=== PATIENT | female | born 1950 | race Caucasian/White ===

== ENCOUNTER 2021-01-09 04:49 | Emergency (ER) | payer MEDICARE ==
[~2021-01-09] VITALS: Ht 160 cm; Wt 181.0 kg
[~2021-01-09 04:49] MED LIST: ALBU18HF2 INH; ALD50T PO; ASPI-130 PO; CETI10TA15 PO; CLON-529 PO; DOCU-148 PO; ESOM40CA PO; FERR325T28 PO; FLUT16SP20 BOTHNARES; IBUP-1985 PO; LISI10TA27 PO; LORA1TAB PO; LOVA40TA76 PO; METF-436 PO; MYC15CR TOP; NEOM28.44 TP; NOR5T PO; ONDA4TAB12 PO; ROPI2TAB4 PO; SUCR1TAB34 PO; TRIA15CR61 TP
[2021-01-09 05:13] VITALS: BP 136/87
[2021-01-09] MEDS ORDERED: fluconazole 150mg tablet PO ONE (07:15)
[2021-01-09] MEDS ORDERED: sulfamethoxazole/trimethoprim DS (800/160mg) tablet PO ONE (07:20)
[2021-01-09] MEDS ORDERED: SULF1TAB49 PO (07:24)
[2021-01-09] MEDS ORDERED: FLUO15OI2 TP (07:24)
== END 2021-01-09 07:47 | disposition home or self-care (01) ==
LOC: ER 04:50
DX: L03.311 Cellulitis of abdominal wall (principal); E66.01 Morbid (severe) obesity due to excess calories; E78.00 Pure hypercholesterolemia, unspecified; I10 Essential (primary) hypertension; M79.7 Fibromyalgia; G47.39 Other sleep apnea; Z86.19 Personal history of other infectious and parasitic diseases; Z88.0 Allergy status to penicillin; Z88.1 Allergy status to other antibiotic agents; Z88.8 Allergy status to other drugs, medicaments and biological substances; Z79.899 Other long term (current) drug therapy; Z68.45 Body mass index [BMI] 70 or greater, adult
CPT/HCPCS: 99284

== ENCOUNTER 2023-02-16 09:56 | Emergency (ER) | payer MEDICARE ==
[~2023-02-16] VITALS: Ht 157.5 cm; Wt 175.4 kg
[~2023-02-16 09:56] MED LIST changes: -MYC15CR TOP; +NYST15CR36 TOP
[2023-02-16 10:09] VITALS: BP 104/77
[2023-02-16] MEDS ORDERED: normal saline 1000ML IV soln IVB ONE (10:55)
[2023-02-16 11:21] LABS: BASOPHILS % (AUTO) 0.3 % (0-1); EOSINOPHILS # (AUTO) 0.1 X10'3 (0-0.9); EOSINOPHILS % (AUTO) 1.1 % (0-6); HEMATOCRIT 41.4 % (35.0-45.0); HEMOGLOBIN 13.9 g/dl (12.0-16.0); LYMPHOCYTES # (AUTO) 0.5 X10'3 (1.1-4.8); LYMPHOCYTES % (AUTO) 5.8 % (21-51); MEAN CORPUSCULAR HEMOGLOBIN 29.3 PG (27.0-31.0); MEAN CORPUSCULAR HGB CONC 33.6 g/dL (33.0-36.5); MEAN CORPUSCULAR VOLUME 87.2 FL (78-98); MEAN PLATELET VOLUME 6.6 FL (7.4-10.4); MONOCYTES # (AUTO) 0.8 X10'3 (0-0.9); MONOCYTES % (AUTO) 9.3 % (2-12); NEUTROPHILS # (AUTO) 6.8 X10'3 (1.8-7.7); NEUTROPHILS % (AUTO) 83.5 % (42-75); PLATELET COUNT 306 X10'3 (140-440); RED BLOOD COUNT 4.75 X10'6 (4.20-5.60); RED CELL DISTRIBUTION WIDTH 15.1 % (11.5-14.5); WHITE BLOOD COUNT 8.1 X10'3 (4.5-11.0)
[2023-02-16 11:34] LABS: ALANINE AMINOTRANSFERASE 27 U/L (12-78); ALBUMIN 3.6 G/DL (3.4-5.0); ALBUMIN/GLOBULIN RATIO 0.9 (1.1-1.5); ALKALINE PHOSPHATASE 71 IU/L (46-116); ANION GAP 9 (8-16); ASPARTATE AMINO TRANSFERASE 19 U/L (10-37); BILIRUBIN,TOTAL 0.4 MG/DL (0.1-1.0); BLOOD UREA NITROGEN 15 MG/DL (7-18); BUN/CREATININE RATIO 12.8 (10.0-20.0); CALCIUM 9.3 MG/DL (8.5-10.1); CHLORIDE 91 MMOL/L (99-107); CREATININE 1.17 MG/DL (0.40-0.90); GLUCOSE 113 MG/DL (70-104); POTASSIUM 4.9 MMOL/L (3.5-5.1); SODIUM 126 MMOL/L (135-145); TOTAL CARBON DIOXIDE 25.8 MMOL/L (24-32); TOTAL PROTEIN 7.7 G/DL (6.4-8.2); eGFR 46 ML/MIN
[2023-02-16] MEDS ORDERED: NYST1000 PO (12:46)
== END 2023-02-16 12:57 | disposition home or self-care (01) ==
LOC: ER 09:56
DX: E87.1 Hypo-osmolality and hyponatremia (principal); B37.9 Candidiasis, unspecified; K04.7 Periapical abscess without sinus
CPT/HCPCS: 36415; 80053; 85025; 99283; J7030

== ENCOUNTER 2025-07-26 15:31 | Emergency (ER) | payer OTHER, MEDICARE ==
[~2025-07-26] VITALS: Ht 157.5 cm; Wt 194.0 kg
[~2025-07-26 15:31] MED LIST changes: -FLUT16SP20 BOTHNARES; +FLUT16SP35 BOTHNARES; -IBUP-1985 PO; +METO25TA6 PO; -NEOM28.44 TP; -NYST15CR36 TOP; +ONDA-243 PO; -ONDA4TAB12 PO; -SUCR1TAB34 PO
--- NOTE | 2025-07-26 15:57 | ELECTROCARDIOGRAPH REPORT ---
[facility] Test Date: 2025-07-26 Test Time: 15:56:10 Pat Name: DA ARIAS Department: [facility]-ER Patient ID: [facility]-[id number] Room: Gender: F Electronic Design Engineer: : 1950 Requested By: SAAD MARCIAL Order Number: [id number] Reading MD: Dr. HALLEY Pinedo Measurements Intervals [place] Rate: 74 P: 52 AR: 201 QRS: 41 QRSD: 87 T: 71 QT: 397 QTc: 441 Interpretive Statements Sinus rhythm Electronically Signed On 07-27-2025 13:53:[address] HALLEY Pinedo Please click the below link to view image of tracing.
[2025-07-26 16:10] LABS: MEAN PLATELET VOLUME 6.7 FL (7.4-10.4); RED CELL DISTRIBUTION WIDTH 15.9 % (11.5-14.5)
[2025-07-26 16:31] LABS: CREATININE 0.98 MG/DL (0.40-0.90); PRO BRAIN NATRIURETIC PEPTIDE 387 PG/ML (0-125); TOTAL CARBON DIOXIDE 30.2 MMOL/L (24-32); eCRCL 40 ML/MIN; eGFR 56 ML/MIN
--- NOTE | 2025-07-26 17:10 | RADIOLOGY REPORT ---
CHEST RADIOGRAPH REASON FOR EXAM: Chest pain COMPARISON: CT CTA CHEST PE on DOS: 07/07/24, CT CT CHEST on DOS: 07/06/24, DI CHEST,SINGLE VIEW on DOS: 07/06/24 TECHNIQUE: One view of the chest is provided FINDINGS: The cardiomediastinal silhouette is enlarged. Evaluation is degraded by body habitus. There is bibasilar airspace disease. There is no large pleural effusion. There is no pneumothorax. IMPRESSION: Evaluation degraded by body habitus. Bibasilar airspace disease may represent atelectasis although pneumonia is not ruled out.
[2025-07-26 20:35] VITALS: BP 135/76; PULSE 83; RESP 16; TEMP 98.6; O2SAT 90
== END 2025-07-26 21:29 | disposition left against medical advice (07) ==
LOC: ER 15:32
DX: R06.02 Shortness of breath (principal); R05.9 Cough, unspecified; R09.3 Abnormal sputum; Z53.21 Procedure and treatment not carried out due to patient leaving prior to being seen by health care provider; Z88.1 Allergy status to other antibiotic agents; Z88.5 Allergy status to narcotic agent; Z88.0 Allergy status to penicillin
CPT/HCPCS: 36415; 71045; 80048; 83880; 84484; 85025; 93005; 99281

== ENCOUNTER 2025-07-28 19:34 | Emergency (ER) | payer MEDICARE, OTHER ==
[2025-07-28 20:15] LABS: MEAN PLATELET VOLUME 6.6 FL (7.4-10.4); RED CELL DISTRIBUTION WIDTH 15.8 % (11.5-14.5)
[2025-07-28 20:29] LABS: CREATININE 0.90 MG/DL (0.40-0.90); PRO BRAIN NATRIURETIC PEPTIDE 301 PG/ML (0-125); TOTAL CARBON DIOXIDE 30.0 MMOL/L (24-32); eGFR 61 ML/MIN
--- NOTE | 2025-07-28 22:06 | Physician Documentation ---
History of Present Illness ~ Chief Complaint: Shortness of Breath Stated Complaint: LOW O2 Time Seen by MD: 22:05 Primary Medical Doctor: RADHA HPI Patient presents to the emergency room that has chief complaint of hypoxia when falling asleep. She reports a history of positive sleep study 10 years ago but never followed up. She generally feels ill reports morning headaches and that has not felt well for the past 1-2 months. She has follow up tomorrow morning with her primary care provider. Son that has concern because pulse ox dropped to 58% on room air when she was sleeping. Medication Reconciliation Allergies: Coded Allergies: Penicillins (Verified Allergy, Severe, HAS TROUBLE BREATHING, 07/26/25) cephalexin (Verified Allergy, Severe, 07/26/25) cefazolin sodium (Verified Allergy, Intermediate, 07/26/25) sob codeine (Verified Allergy, Intermediate, VISUAL DISTURBANCE, 07/26/25) doxycycline (Verified Allergy, Unknown, 07/26/25) hydromorphone (Verified Allergy, Unknown, REDUCES OXYGEN LEVELS, 07/26/25) Scheduled Amlodipine* (Norvasc*), 10 MG PO DAILY, (Reported) Cetirizine HCl (Cetirizine HCl), 1 TAB PO DAILY, (Reported) Clonidine Hcl* (Catapres*), 0.2 MG PO BID, (Reported) Esomeprazole Mag Trihydrate* (Nexium*), 40 MG PO DAILY, (Reported) Ferrous Sulfate* (Ferrous Sulfate*), 1 TAB PO BID, (Reported) Fluticasone Propionate (Fluticasone Propionate), 1 SPRAY BOTHNARES DAILY, (Reported) Lisinopril (Lisinopril), 10 MG PO DAILY, (Reported) Lovastatin* (Mevacor*), 40 MG PO DAILY, (Reported) Metformin Hcl (Metformin Hcl), 1 TAB PO BIDWM, (Reported) Metoprolol Tartrate (Metoprolol Tartrate), 0.5 TAB PO BID, (Reported) Ropinirole Hcl (Requip), 2 MG PO BID, (Reported) Spironolactone* (Aldactone*), 50 MG PO DAILY, (Reported) Triamcinolone Acetonide 0.5% Crm* (Kenalog 0.5% Crm*), 1 APPLIC TP DAILY, (Reported) Scheduled PRN Albuterol Sulfate (Ventolin Hfa), 2 PUFFS INH Q4HPRN PRN for SOB or wheezing, (Reported) Aspirin/Acetaminophen/Caffeine (Excedrin Tablet), 2 TAB PO Q4H PRN for migraine headaches, (Reported) Docusate Sodium (Colace), 1 CAP PO HS PRN for constipation, (Reported) Lorazepam* (Ativan*), 1 MG PO QID PRN for anxiety, (Reported) ONDANSETRON ODT 4mg tablet (Ondansetron Odt), 1 TABLET PO Q8H PRN for nausea/vomiting, (Reported) Past Medical History Past Medical History: Headache, Allergic Rhinitis, High Cholesterol, Hypertension, Asthma, Sleep Apnea, Diverticulosis, Fibromyalgia, Osteopenia, Cellulitis, Psoriasis, Anxiety, Depression Past Surgical History: noncontributory Alcohol Use: None Drug Use: none Lives with: Spouse Lives In: Home Review of Systems ROS All review of systems negative except as per HPI Physical Exam Vital Signs: Temperature: 98.0, Heart Rate: 90, Respiratory Rate: 18, BP: 146/86, Pulse Oximetry: 96 Oxygen Flow Rate: 2.0 Physical Exam General: Patient is awake, alert, oriented x4 in no acute distress. Morbidly obese Head: Normocephalic and atraumatic. Eyes: Conjunctival normal. EOMI. PERRL. ENT: Mucous membranes moist. Neck: Supple, trachea is midline. Chest: Clear to auscultation bilaterally without rales, rhonchi, or wheezes. There is no accessory muscle use or retractions. Cardiac: RRR without murmurs, gallops, or rubs. Abd: Soft, nontender. Large pannus Extremities: Normal strength. Normal range of motion. No deformities or edema. No calf tenderness to palpation Progress Results/Orders Results/Orders Orders - BETO FLORES MD Chest,Single View (07/28/25 20:18) Monitor (07/28/25 19:42) Saline Lock (07/28/25 19:42) Oxygen (07/28/25 19:42) Electrocardiogram (07/28/25 19:42) Hs Troponin I W Calculations (07/28/25 22:42) Completed Orders - BETO FLORES MD Chest,Single View (07/28/25 20:18) Cbc/Diff (07/28/25 19:42) BMP (07/28/25 19:42) PBNP (07/28/25 19:42) Hs Troponin I W Calculations (07/28/25 19:42) Hs Troponin I W Calculations (07/28/25 21:42) Vital Signs 07/28/25 07/28/25 07/28/25 07/28/25 19:44 19:55 21:22 22:39 Temp 98.0 Pulse 79 72 90 Resp 18 24 B/P (MAP) 146/86 Pulse Ox 89 95 96 O2 Flow Rate 0 2.0 2.0 07/28/25 23:00 Temp 98.0 Pulse 69 Resp 24 B/P (MAP) 114/73 (87) Pulse Ox 93 O2 Flow Rate 2.0 Laboratory Tests Test 07/28/25 19:57 07/28/25 22:09 White Blood Count 6.9 Red Blood Count 4.60 Hemoglobin 13.0 Hematocrit 39.7 Mean Corpuscular Volume 86.4 Mean Corpuscular Hemoglobin 28.3 Mean Corpuscular Hemoglobin Concent 32.7 L Red Cell Distribution Width 15.8 H Platelet Count 297 Mean Platelet Volume 6.6 L Neutrophils (%) (Auto) 80.1 H Lymphocytes (%) (Auto) 10.4 L Monocytes (%) (Auto) 6.6 Eosinophils (%) (Auto) 2.3 Basophils (%) (Auto) 0.6 Neutrophils # (Auto) 5.6 Lymphocytes # (Auto) 0.7 L Monocytes # (Auto) 0.5 Eosinophils # (Auto) 0.2 Basophils # (Auto) 0.0 CBC Comment Sodium Level 134 L Potassium Level 4.5 Chloride Level 99 Carbon Dioxide Level 30.0 Anion Gap 5 L Blood Urea Nitrogen 16 Creatinine 0.90 Estimated GFR/1.73 m2 61 BUN/Creatinine Ratio 17.8 Glucose Level 113 H Calcium Level 8.9 Troponin I High Sensitivity 12 13 Troponin I High Sens Percent Delta 14 8 Troponin I Hi Sens Absolute Change -2 1 Pro-B-Type Natriuretic Peptide 301 H Albumin 3.5 Chemistry Comments EKG/XRAY/CT/US/VASC/MRI EKG : Additional Comment EKG interpreted by myself shows time of 1943, rate 79, sinus rhythm, normal axis, no ST changes Medical Decision Making Additional information obtaine: old records Findings Patient presents to the emergency room for evaluation of hypoxic episodes while sleeping. Differentials include but are not limited to obstructive sleep apnea, CHF, pneumonia therefore emergent labs and imaging indicated. Labs reassuring that has that has chest x-ray although chest x-ray is limited. I do not suspect pneumonia. That has able to watch patient while she is awake on her monitor and she is saturating in the mid 90s. When patient did fall asleep she did become hypoxic. She has excellent follow up tomorrow with her primary care provider as she likely suffering from obstructive sleep apnea. Although she is becoming hypoxic and that has episodes she returns to normal saturations when she is awake and this has a process that has been going on for likely many months. I do not feel she is suffering from an acute medical emergency Heart Score: 3 Differential Dx:Considerations: Include: anxiety, asthma, bronchitis, cardiog enic shock, CHF, COPD, dysrhythmia, hypertension, accelerated, hypertension, essential, hypertension, malignant, hyperventilation, hyponatremia, myocardial infarction, panic attack, pneumonia, pneumonitis, pneumothorax, PSVT, pulmonary embolism, respiratory distress, respiratory failure, sinusitis, upper resp. infection, other Departure Disposition: HOME / SELF CARE / HOMELESS Impression: Primary Impression: Sleep apnea Condition: Fair Discharge Instructions: Sleep Apnea Additional Instructions: Follow up tomorrow with your doctor regarding need for sleep studies Referrals: NO PRIMARY CARE PROVIDER (PCP) Signature Scribe Signature: No scribe Attestation: The note accurately reflects work and decisions made by me.Beto Flores MD 07/28/25 23:06 BETO FLORES MD Jul 28, 2025 22:06
[2025-07-28 23:00] VITALS: BP 114/73; PULSE 69; RESP 24; O2SAT 93
[2025-07-28 23:41] VITALS: TEMP 98
--- NOTE | 2025-07-29 07:45 | ELECTROCARDIOGRAPH REPORT ---
[facility] Test Date: 2025-07-28 Test Time: 19:43:36 Pat Name: DA ARIAS Department: EMERGENCY ROOM Room: Gender: F Public Defender: CHRIS : 1950 Requested By: EMELY MILLER Order Number: [id number] Reading MD: Measurements Intervals [place] Rate: 79 P: 43 OK: 188 QRS: 38 QRSD: 91 T: 51 QT: 393 QTc: 451 Interpretive Statements Sinus rhythm Low voltage, precordial leads Please click the below link to view image of tracing.
--- NOTE | 2025-07-29 08:17 | RADIOLOGY REPORT ---
CHEST RADIOGRAPH Indication: CP Technique: Single frontal view of the chest was obtained COMPARISON: DI CHEST,SINGLE VIEW on DOS: 07/26/25, CT CTA CHEST PE on DOS: 07/07/24, CT CT CHEST on DOS: 07/06/24, DI CHEST,SINGLE VIEW on DOS: 07/06/24 FINDINGS: Lines and Tubes: None Lungs: Increased interstital prominence. This may represent pulmonary vascular congestion and/or viral pneumonia. Pleura: No effusion.No pneumothorax. Cardiomediastinal contours: Cardiomegaly. Bones: Unremarkable IMPRESSION: Cardiomegaly. Increased interstital prominence. This may represent pulmonary vascular congestion and/or viral pneumonia.
== END 2025-07-29 | disposition home or self-care (01) ==
LOC: ER 19:35
DX: G47.30 Sleep apnea, unspecified (principal); E78.00 Pure hypercholesterolemia, unspecified; I10 Essential (primary) hypertension; M79.7 Fibromyalgia; F41.9 Anxiety disorder, unspecified; F32.A Depression, unspecified; Z88.0 Allergy status to penicillin; Z88.1 Allergy status to other antibiotic agents; Z88.5 Allergy status to narcotic agent; Z79.899 Other long term (current) drug therapy
CPT/HCPCS: 36415; 71045; 80048; 83880; 84484; 85025; 93005; 99285; A4615